=== PATIENT | male | born 1985 | race Two or more races ===

== ENCOUNTER → 2020-04-14 15:33 | Outpatient (CLI) | payer OTHER | END | disposition home or self-care (01) | LOC: LAB 14:08 | DX: U07.1 COVID-19 (principal) ==

== ENCOUNTER 2021-05-18 08:00 | Outpatient (CLI) | payer OTHER | END 2021-05-18 08:30 | disposition home or self-care (01) | LOC: PPH VACUNA 08:00 | PROVIDERS: ATTEND Emergency Medicine Pediatric Emergency Medicine | DX: Z23 Encounter for immunization (principal) ==